=== PATIENT | female | born 1965 | race Caucasian/White ===

== ENCOUNTER 2021-04-27 20:25 | Inpatient (IN) | payer OTHER ==
[~2021-04-27] VITALS: Ht 170.1 cm; Wt 40.8 kg
[2021-04-27 20:32] VITALS: BP 99/67
[2021-04-27 21:02] LABS: HEMATOCRIT 36.7 % (37.0-47.0); MEAN CELL VOLUME 90.8 fl (81.0-99.0); MEAN CORPUSCULAR HGB 30.2 pg (27.0-31.0); MEAN CORPUSCULAR HGB CONC 33.2 g/dl (33.0-37.0); MEAN PLATELET VOLUME 8.8 fl (9.6-12.3); PLATELET COUNT AUTOMATED 394 10*3/uL (130-400); RED BLOOD COUNT 4.04 10*6/uL (4.10-5.10); RED CELL DISTRI WIDTH 12.9 % (0-14.5)
[2021-04-27 21:03] LABS: MANUAL DIFF REFLEX YES
[2021-04-27 21:13] LABS: ACT PARTIAL THROMBO TIME 31.8 SECONDS (20.0-32.1)
[2021-04-27 21:27] LABS: ALKALINE PHOSPHATASE 123 U/L (45-117); BUN 11 mg/dl (7-24); CHLORIDE 104 mmol/L (98-107); CREATININE 0.77 mg/dL (0.55-1.02); LIPASE 75 U/L (73-393); POTASSIUM 3.5 mmol/L (3.5-5.1); SGOT/AST 18 IU/L (3-35); SGPT/ALT 25 U/L (12-78); SODIUM 136 mmol/L (136-145); TOTAL PROTEIN 6.9 gm/dL (6.4-8.2)
[2021-04-27 21:39] LABS: TOTAL CELLS COUNTED 100 #CELLS
[2021-04-27 21:40] LABS: PLATELET SUFFICIENCY NORMAL (NORMAL)
[2021-04-27 21:41] LABS: ACANTHOCYTES FEW
[2021-04-27 22:32] LABS: BILIRUBIN Negative (Negative); BLOOD Trace-Lysed (Negative); CLARITY Clear (Clear); COLOR Dark Yellow (Yellow); GLUCOSE Negative (Negative); KETONE Trace (Negative); LEUKO ESTERASE Trace (Negative); NITRITE Negative (Negative); SPECIFIC GRAVITY >= 1.030 (1.001-1.030)
[2021-04-27 23:06] LABS: BACTERIA TRACE; EPITHELIAL CELLS 0-2; MUCOUS 2+
[2021-04-27 23:24] VITALS: BP 102/65
[2021-04-28] VITALS: BP 96/64
[2021-04-28 06:11] LABS: BUN 11 mg/dl (7-24); CHLORIDE 108 mmol/L (98-107); CREATININE 0.69 mg/dL (0.55-1.02); POTASSIUM 3.9 mmol/L (3.5-5.1); SODIUM 137 mmol/L (136-145)
[2021-04-28 06:20] LABS: FREE T4 1.36 ng/dl (0.76-1.46); THYROID STIM HORMONE (HS) 0.447 uIU/ml (0.358-4.75)
[2021-04-28 06:23] LABS: HEMATOCRIT 37.6 % (37.0-47.0); MEAN CELL VOLUME 92.6 fl (81.0-99.0); MEAN CORPUSCULAR HGB 30.5 pg (27.0-31.0); MEAN PLATELET VOLUME 9.4 fl (9.6-12.3); PLATELET COUNT AUTOMATED 441 10*3/uL (130-400); RED BLOOD COUNT 4.06 10*6/uL (4.10-5.10); WHITE BLOOD COUNT 14.8 10*3/uL (4.8-10.8)
[2021-04-28 06:38] LABS: MANUAL DIFF REFLEX YES
[2021-04-28 07:18] LABS: BURR CELLS FEW; POLYCHROMASIA SLIGHT; TARGET CELLS FEW; TOTAL CELLS COUNTED 100 #CELLS; TOXIC GRANULATION SLIGHT
[2021-04-28 07:19] LABS: PLATELET SUFFICIENCY HIGH (NORMAL)
[2021-04-28 07:44] LABS: VITAMIN D, 25-HYDROXY 15.2 ng/mL (30-100)
== END 2021-04-28 06:20 | disposition left against medical advice (07) | DRG 720 ==
LOC: ED 20:25 → EDHOLD 23:15 → 4E 23:28
PROVIDERS: Physician Assistant; Student in an Organized Health Care Education/Training Program; ADMIT Family Medicine; ATTEND Family Medicine
DX: A41.9 Sepsis, unspecified organism (principal); J18.9 Pneumonia, unspecified organism; E43 Unspecified severe protein-calorie malnutrition; J43.9 Emphysema, unspecified; I25.10 Atherosclerotic heart disease of native coronary artery without angina pectoris; R73.9 Hyperglycemia, unspecified; F17.210 Nicotine dependence, cigarettes, uncomplicated; Z90.710 Acquired absence of both cervix and uterus; Z68.1 Body mass index [BMI] 19.9 or less, adult

== ENCOUNTER 2021-05-04 16:16 | Emergency (ER) | payer OTHER ==
[~2021-05-04] VITALS: Ht 170.1 cm; Wt 40.8 kg
[2021-05-04 16:42] LABS: BASO # 0.1 10*3/uL (0.0-0.1); BASO % 0.5 % (0.0-1.0); EOS # 0.3 10*3/uL (0.0-0.4); EOS % 2.5 % (1.0-4.0); HEMATOCRIT 38.6 % (37.0-47.0); LYMPH # 3.5 10*3/uL (1.3-4.4); LYMPH % 30.8 % (27.0-41.0); MEAN CELL VOLUME 91.7 fl (81.0-99.0); MEAN CORPUSCULAR HGB 29.9 pg (27.0-31.0); MEAN CORPUSCULAR HGB CONC 32.6 g/dl (33.0-37.0); MEAN PLATELET VOLUME 8.1 fl (9.6-12.3); MONO # 0.9 10*3/uL (0.1-1.0); MONO % 7.5 % (3.0-9.0); NEUT # 6.5 10*3/uL (2.3-7.9); NEUT % 57.2 % (47.0-73.0); PLATELET COUNT AUTOMATED 600 10*3/uL (130-400); RED BLOOD COUNT 4.21 10*6/uL (4.10-5.10); RED CELL DISTRI WIDTH 13.2 % (0-14.5); WHITE BLOOD COUNT 11.3 10*3/uL (4.8-10.8)
[2021-05-04 17:00] LABS: ALKALINE PHOSPHATASE 119 U/L (45-117); BUN 19 mg/dl (7-24); CHLORIDE 104 mmol/L (98-107); CREATININE 0.77 mg/dL (0.55-1.02); POTASSIUM 4.2 mmol/L (3.5-5.1); SGOT/AST 11 IU/L (3-35); SGPT/ALT 22 U/L (12-78); SODIUM 138 mmol/L (136-145); TOTAL PROTEIN 7.1 gm/dL (6.4-8.2)
[2021-05-04 19:15] LABS: BILIRUBIN Negative (Negative); BLOOD Negative (Negative); CLARITY Clear (Clear); COLOR Yellow (Yellow); GLUCOSE Negative (Negative); KETONE Negative (Negative); LEUKO ESTERASE Trace (Negative); NITRITE Negative (Negative); UROBILINOGEN 0.2 E.U./dl (0.0-1.0)
[2021-05-04 19:26] LABS: BACTERIA TRACE; RBC 0-2 rbc/hpf (0-2); YEAST TRACE
[2021-05-04 19:27] LABS: URINE AMPHETAMINES > 1000 (1000ng/ml); URINE BARBITURATES < 200 (200ng/ml); URINE BENZODIAZEPINES > 200 (200ng/ml); URINE CANNABINOIDS (THC) > 50 (50ng/ml); URINE COCAINE > 300 (300ng/ml); URINE METHADONE < 300 (300ng/ml); URINE OPIATES < 300 (300ng/ml)
[2021-05-04 19:29] LABS: URINE PHENCYCLIDINE < 25 (25ng/ml)
== END 2021-05-04 20:02 | disposition left against medical advice (07) ==
LOC: ED 16:16
PROVIDERS: Family Medicine
DX: T50.991A Poisoning by other drugs, medicaments and biological substances, accidental (unintentional), initial encounter (principal); R53.83 Other fatigue; F17.200 Nicotine dependence, unspecified, uncomplicated; Z90.89 Acquired absence of other organs; Z90.710 Acquired absence of both cervix and uterus; Y92.89 Other specified places as the place of occurrence of the external cause

== ENCOUNTER 2022-02-20 19:02 | Emergency (ER) | payer OTHER ==
[~2022-02-20] VITALS: Ht 170.1 cm; Wt 50.3 kg
[2022-02-20 19:48] LABS: BASO # 0.1 10*3/uL (0.0-0.1); BASO % 0.3 % (0.0-1.0); EOS # 0.2 10*3/uL (0.0-0.4); HEMATOCRIT 40.5 % (37.0-47.0); LYMPH # 3.2 10*3/uL (1.3-4.4); LYMPH % 14.5 % (27.0-41.0); MEAN CELL VOLUME 91.2 fl (81.0-99.0); MEAN CORPUSCULAR HGB 30.2 pg (27.0-31.0); MEAN CORPUSCULAR HGB CONC 33.1 g/dl (33.0-37.0); MEAN PLATELET VOLUME 9.2 fl (9.6-12.3); MONO # 1.2 10*3/uL (0.1-1.0); MONO % 5.6 % (3.0-9.0); NEUT % 78.1 % (47.0-73.0); PLATELET COUNT AUTOMATED 304 10*3/uL (130-400); RED BLOOD COUNT 4.44 10*6/uL (4.10-5.10); RED CELL DISTRI WIDTH 13.6 % (0-14.5); WHITE BLOOD COUNT 21.8 10*3/uL (4.8-10.8)
[2022-02-20 20:06] LABS: ALKALINE PHOSPHATASE 102 U/L (46-116); BUN 13 mg/dl (9-23); CHLORIDE 103 mmol/L (98-107); POTASSIUM 3.7 mmol/L (3.4-5.1); SGPT/ALT 16 U/L (10-49); TOTAL PROTEIN 6.9 gm/dL (6.0-8.0)
[2022-02-20] MEDS ORDERED: MEDROL DOSEPAK4 MG PO (22:01)
[2022-02-20] MEDS ORDERED: VIBRAMYCIN100 MG PO (22:01)
[2022-02-20] MEDS ORDERED: ZITHROMAX250 MG PO (22:01)
== END 2022-02-20 22:10 | disposition home or self-care (01) ==
LOC: ED 19:02
PROVIDERS: Nurse Practitioner Family
DX: J43.9 Emphysema, unspecified (principal); J45.909 Unspecified asthma, uncomplicated; Z90.710 Acquired absence of both cervix and uterus; Z90.89 Acquired absence of other organs; F17.200 Nicotine dependence, unspecified, uncomplicated

== ENCOUNTER → 2022-08-29 | Outpatient (CLI) | payer OTHER ==
[~2022-08-29] MED LIST: MEDROL DOSEPAK4 MG PO; VIBRAMYCIN100 MG PO; ZITHROMAX250 MG PO
[2022-08-29 14:31] LABS: BASO # 0.1 10*3/uL (0.0-0.1); BASO % 0.6 % (0.0-1.0); EOS # 0.3 10*3/uL (0.0-0.4); EOS % 2.7 % (1.0-4.0); HEMATOCRIT 41.6 % (37.0-47.0); LYMPH # 4.3 10*3/uL (1.3-4.4); LYMPH % 38.2 % (27.0-41.0); MEAN CELL VOLUME 97.4 fl (81.0-99.0); MEAN CORPUSCULAR HGB 32.1 pg (27.0-31.0); MEAN CORPUSCULAR HGB CONC 32.9 g/dl (33.0-37.0); MEAN PLATELET VOLUME 8.9 fl (9.6-12.3); MONO % 8.8 % (3.0-9.0); NEUT # 5.5 10*3/uL (2.3-7.9); NEUT % 49.3 % (47.0-73.0); PLATELET COUNT AUTOMATED 352 10*3/uL (130-400); RED BLOOD COUNT 4.27 10*6/uL (4.10-5.10); RED CELL DISTRI WIDTH 14.4 % (0-14.5); WHITE BLOOD COUNT 11.2 10*3/uL (4.8-10.8)
[2022-08-29 15:01] LABS: VITAMIN D, 25-HYDROXY 16.1 ng/mL (30-100)
[2022-08-29 15:02] LABS: ALKALINE PHOSPHATASE 88 U/L (46-116); BUN 8 mg/dl (9-23); CHLORIDE 108 mmol/L (98-107); CHOLESTEROL 157 mg/dL (<200); LDL CHOLESTEROL 87 mg/dL (9-159); POTASSIUM 4.4 mmol/L (3.4-5.1); SGPT/ALT 14 U/L (10-49); TOTAL PROTEIN 6.4 gm/dL (6.0-8.0); TRIGLYCERIDES 58 mg/dl (<150)
== END | disposition home or self-care (01) ==
LOC: LAB 13:54
PROVIDERS: ATTEND Family Medicine
DX: Z00.00 Encounter for general adult medical examination without abnormal findings (principal); Z12.11 Encounter for screening for malignant neoplasm of colon; Z13.6 Encounter for screening for cardiovascular disorders; R73.01 Impaired fasting glucose; E55.9 Vitamin D deficiency, unspecified

== ENCOUNTER 2024-08-05 04:36 | Inpatient (IN) | payer OTHER ==
[~2024-08-05] VITALS: Ht 170.2 cm; Wt 45.8 kg
[2024-08-05 04:38] VITALS: BP 116/59
[2024-08-05 05:49] LABS: ALKALINE PHOSPHATASE 103 U/L (46-116); BUN 9 mg/dl (9-23); CHLORIDE 100 mmol/L (98-107); LIPASE 35 U/L (12-53); SGPT/ALT 8 U/L (5-49); TOTAL PROTEIN 6.8 gm/dL (6.0-8.0)
[2024-08-05 05:57] LABS: HEMATOCRIT 37.6 % (37.0-47.0); MEAN CELL VOLUME 94.9 fl (81.0-99.0); MEAN CORPUSCULAR HGB 30.3 pg (27.0-31.0); MEAN CORPUSCULAR HGB CONC 31.9 g/dl (33.0-37.0); MEAN PLATELET VOLUME 8.8 fl (9.6-12.3); PLATELET COUNT AUTOMATED 488 10*3/uL (130-400); RED BLOOD COUNT 3.96 10*6/uL (4.10-5.10); RED CELL DISTRI WIDTH 13.2 % (0-14.5); WHITE BLOOD COUNT 27.1 10*3/uL (4.8-10.8)
[2024-08-05 06:13] LABS: MANUAL DIFF REFLEX YES
[2024-08-05 06:41] LABS: PLATELET SUFFICIENCY HIGH (NORMAL); TOTAL CELLS COUNTED 100 #CELLS
[2024-08-05 06:43] LABS: BURR CELLS FEW
[2024-08-05] MEDS ORDERED: IOHEXOL 300 MG/ML 100 ML VIAL IV ONE (08:40)
[2024-08-05 08:52] LABS: BILIRUBIN Negative (Negative); BLOOD Negative (Negative); CLARITY Clear (Clear); COLOR Yellow (Yellow); GLUCOSE Negative (Negative); KETONE Negative (Negative); LEUKO ESTERASE Trace (Negative); NITRITE Negative (Negative); SPECIFIC GRAVITY <= 1.005 (1.001-1.030)
[2024-08-05] MEDS ORDERED: IOHEXOL 300 MG/ML 100 ML VIAL ONE (08:56)
[2024-08-05 09:03] LABS: BACTERIA 1+
[2024-08-05] MEDS ORDERED: Piperacillin Sodium/Tazobact 100 ML IV ONE (09:25)
[2024-08-05] MEDS ORDERED: SODIUM CHLORIDE 0.9% 1,000 ML IV SCH (09:30)
[2024-08-05] MEDS ORDERED: Ondansetron Hydrochloride 4 MG/2 ML VIAL IV ONE (09:40)
[2024-08-05] MEDS ORDERED: MORPHINE Sulfate 2 MG/ML SYR IV ONE ×2 (09:40→13:50)
[2024-08-05] MEDS ORDERED: VALIUM10 MG PO (09:43)
[2024-08-05] MEDS ORDERED: ADDERALL 10 MG10 MG PO (09:43)
[2024-08-05] MEDS ORDERED: NEURONTIN300 MG PO (09:44)
[2024-08-05] MEDS ORDERED: VENT7GM INH (09:44)
[2024-08-05 10:34] VITALS: BP 100/60
[2024-08-05 10:45] VITALS: BP 100/58
[2024-08-05] MEDS ORDERED: BISACODYL 10 MG SUPP R PRN (11:40)
[2024-08-05] MEDS ORDERED: ACETAMINOPHEN 650 MG SUPP R PRN (11:40)
[2024-08-05] MEDS ORDERED: BISACODYL 5 MG TAB PO PRN (11:40)
[2024-08-05] MEDS ORDERED: Ondansetron Hydrochloride 4 MG/2 ML VIAL IV PRN (11:40)
[2024-08-05] MEDS ORDERED: ACETAMINOPHEN 325 MG TAB PO PRN (11:40)
[2024-08-05] MEDS ORDERED: cefTRIAXone Sodium 1 GM in SYRINGE INFUSION 10 ML IV SCH ×3 (12:15→16:30)
[2024-08-05] MEDS ORDERED: SODIUM CHLORIDE 0.9% 500 ML IV SCH (12:15)
[2024-08-05] MEDS ORDERED: Albuterol Sulf/Ipratropium 3 ML VIAL NEB SCH (13:20)
[2024-08-05] MEDS ORDERED: Piperacillin Sodium/Tazobact 4.5 GM in SODIUM CHLORIDE 0.9% 100 ML IV SCH (14:00)
[2024-08-05] MEDS ORDERED: AZITHROMYCIN 250 ML IV SCH ×2 (14:00→18:00)
[2024-08-05] MEDS ORDERED: Water, Sterile 10 ML VIAL ONE (15:50)
[2024-08-05 16:00] VITALS: BP 90/55
[2024-08-05] MEDS ORDERED: Acetaminophen/Hydrocodone 5 MG/325 MG TABLET PO PRN (16:05)
[2024-08-05] MEDS ORDERED: methylPREDNISolone sod succ 40 MG VIAL IV SCH (18:00)
[2024-08-05 20:00] VITALS: BP 100/78
[2024-08-05] MEDS ORDERED: GUAIFENESIN 600 MG TAB ER PO SCH (22:00)
[2024-08-06] VITALS: BP 90/54
[2024-08-06] MEDS ORDERED: Pantoprazole Sodium 40 MG TAB PO SCH (06:00)
[2024-08-06 06:30] LABS: BASO % 0.2 % (0.0-1.0); HEMATOCRIT 35.6 % (37.0-47.0); MEAN CORPUSCULAR HGB 29.9 pg (27.0-31.0); MEAN CORPUSCULAR HGB CONC 31.2 g/dl (33.0-37.0); MONO # 0.7 10*3/uL (0.1-1.0); NEUT # 15.5 10*3/uL (2.3-7.9); NEUT % 86.4 % (47.0-73.0); PLATELET COUNT AUTOMATED 463 10*3/uL (130-400); RED BLOOD COUNT 3.71 10*6/uL (4.10-5.10); RED CELL DISTRI WIDTH 13.4 % (0-14.5)
[2024-08-06 06:31] LABS: ALKALINE PHOSPHATASE 111 U/L (46-116); BUN 13 mg/dl (9-23); CHLORIDE 107 mmol/L (98-107); CHOLESTEROL 129 mg/dL (<200); FREE T4 0.92 ng/dl (0.89-1.76); LDL CHOLESTEROL 82 mg/dL (9-159); POTASSIUM 4.6 mmol/L (3.4-5.1); SGPT/ALT 15 U/L (5-49); TRIGLYCERIDES 52 mg/dl (<150)
[2024-08-06 06:35] LABS: ACT PARTIAL THROMBO TIME 28.1 SECONDS (20.0-32.1)
[2024-08-06 07:07] LABS: VITAMIN D, 25-HYDROXY 10.7 ng/mL (30-100)
[2024-08-06 08:00] VITALS: BP 124/73
[2024-08-06] MEDS ORDERED: Water, Sterile 10 ML VIAL ONE (09:18)
[2024-08-06] MEDS ORDERED: Enoxaparin Sodium 40 MG/0.4 ML SYR SC SCH (10:00)
== END 2024-08-06 10:51 | disposition left against medical advice (07) | DRG 871 ==
LOC: ED 04:36 → 4E 09:41 → EDHOLD 09:41 → 4E 10:30
PROVIDERS: Emergency Medicine; ADMIT Internal Medicine; ATTEND Internal Medicine
DX: A41.9 Sepsis, unspecified organism (principal); J18.9 Pneumonia, unspecified organism; E44.0 Moderate protein-calorie malnutrition; J44.1 Chronic obstructive pulmonary disease with (acute) exacerbation; Z68.1 Body mass index [BMI] 19.9 or less, adult; J45.909 Unspecified asthma, uncomplicated; K80.20 Calculus of gallbladder without cholecystitis without obstruction; F90.9 Attention-deficit hyperactivity disorder, unspecified type; F17.210 Nicotine dependence, cigarettes, uncomplicated; J43.9 Emphysema, unspecified; D75.839 Thrombocytosis, unspecified; R73.9 Hyperglycemia, unspecified; F12.10 Cannabis abuse, uncomplicated; G62.9 Polyneuropathy, unspecified; Z71.6 Tobacco abuse counseling; Z53.29 Procedure and treatment not carried out because of patient's decision for other reasons

== ENCOUNTER 2024-08-07 03:58 | Inpatient (IN) | payer OTHER ==
[~2024-08-07] VITALS: Ht 3556 cm; Wt 48.6 kg
[2024-08-07] VITALS (7 sets, daily range): BP systolic 85–147; BP diastolic 51–89
[~2024-08-07 03:58] MED LIST changes: +ADDERALL 10 MG10 MG PO; +NEURONTIN300 MG PO; +VALIUM10 MG PO; +VENT7GM INH
[2024-08-07] MEDS ORDERED: Ondansetron Hydrochloride 4 MG/2 ML VIAL IV ONE (04:30)
[2024-08-07] MEDS ORDERED: Ketorolac Tromethamine 30 MG/ML VIAL IV ONE (04:30)
[2024-08-07] MEDS ORDERED: SODIUM CHLORIDE 0.9% 500 ML IV ONE (04:30)
[2024-08-07] MEDS ORDERED: Codeine Phosphate/Guaifenesi 10 ML UDC PO ONE (04:30)
[2024-08-07 04:48] LABS: BASO % 0.2 % (0.0-1.0); EOS % 0.1 % (1.0-4.0); HEMATOCRIT 36.5 % (37.0-47.0); MEAN CELL VOLUME 96.1 fl (81.0-99.0); MEAN CORPUSCULAR HGB 30.3 pg (27.0-31.0); MEAN CORPUSCULAR HGB CONC 31.5 g/dl (33.0-37.0); MEAN PLATELET VOLUME 8.6 fl (9.6-12.3); MONO # 1.2 10*3/uL (0.1-1.0); MONO % 4.6 % (3.0-9.0); NEUT # 19.7 10*3/uL (2.3-7.9); NEUT % 79.8 % (47.0-73.0); PLATELET COUNT AUTOMATED 514 10*3/uL (130-400); RED CELL DISTRI WIDTH 13.3 % (0-14.5); WHITE BLOOD COUNT 24.7 10*3/uL (4.8-10.8)
[2024-08-07 05:09] LABS: ALKALINE PHOSPHATASE 121 U/L (46-116); BUN 11 mg/dl (9-23); CHLORIDE 104 mmol/L (98-107); SGPT/ALT 19 U/L (5-49)
[2024-08-07] MEDS ORDERED: SODIUM CHLORIDE 0.9% 1,000 ML IV ONE ×2 (05:20→05:45)
[2024-08-07] MEDS ORDERED: cefTRIAXone Sodium 1 GM/10 ML SYR IV ONE (05:20)
[2024-08-07] MEDS ORDERED: Potassium Bicarbonate/Potass 25 MEQ TAB PO ONE ×2 (05:25→10:00)
[2024-08-07] MEDS ORDERED: Acetaminophen/Hydrocodone 5 MG/325 MG TABLET PO PRN (05:50)
[2024-08-07] MEDS ORDERED: BISACODYL 10 MG SUPP R PRN (05:50)
[2024-08-07] MEDS ORDERED: ACETAMINOPHEN 650 MG SUPP R PRN (05:50)
[2024-08-07] MEDS ORDERED: ACETAMINOPHEN 325 MG TAB PO PRN (05:50)
[2024-08-07] MEDS ORDERED: BISACODYL 5 MG TAB PO PRN (05:50)
[2024-08-07] MEDS ORDERED: Magnesium Hydroxide 30 ML UDC PO PRN (05:50)
[2024-08-07] MEDS ORDERED: Ondansetron Hydrochloride 4 MG/2 ML VIAL IV PRN (05:50)
[2024-08-07] MEDS ORDERED: Albuterol Sulf/Ipratropium 3 ML VIAL NEB SCH (05:55)
[2024-08-07] MEDS ORDERED: GABAPENTIN 300 MG CAP PO SCH (08:00)
[2024-08-07] MEDS ORDERED: Amphetamine Salt Combination 5 MG TAB PO SCH (10:00)
[2024-08-07] MEDS ORDERED: AZITHROMYCIN 250 ML IV SCH (10:00)
[2024-08-07] MEDS ORDERED: GUAIFENESIN 600 MG TAB ER PO SCH (10:00)
[2024-08-07] MEDS ORDERED: Enoxaparin Sodium 40 MG/0.4 ML SYR SC SCH (10:00)
[2024-08-07] MEDS ORDERED: methylPREDNISolone sod succ 40 MG VIAL IV SCH (10:00)
[2024-08-07] MEDS ORDERED: Albuterol Sulf/Ipratropium 3 ML VIAL NEB PRN (15:30)
[2024-08-08] VITALS: BP 99/66
[2024-08-08 06:49] LABS: BASO % 0.1 % (0.0-1.0); HEMATOCRIT 32.8 % (37.0-47.0); MEAN CELL VOLUME 95.6 fl (81.0-99.0); MEAN CORPUSCULAR HGB 30.3 pg (27.0-31.0); MEAN CORPUSCULAR HGB CONC 31.7 g/dl (33.0-37.0); MEAN PLATELET VOLUME 8.5 fl (9.6-12.3); MONO % 5.2 % (3.0-9.0); NEUT # 14.6 10*3/uL (2.3-7.9); NEUT % 80.4 % (47.0-73.0); PLATELET COUNT AUTOMATED 486 10*3/uL (130-400); RED BLOOD COUNT 3.43 10*6/uL (4.10-5.10); RED CELL DISTRI WIDTH 13.6 % (0-14.5); WHITE BLOOD COUNT 18.1 10*3/uL (4.8-10.8)
[2024-08-08 07:36] LABS: ALKALINE PHOSPHATASE 107 U/L (46-116); BUN 13 mg/dl (9-23); CHLORIDE 106 mmol/L (98-107); SGPT/ALT 21 U/L (5-49); TOTAL PROTEIN 5.7 gm/dL (6.0-8.0)
[2024-08-08 07:58] LABS: POTASSIUM 4.6 mmol/L (3.4-5.1)
[2024-08-08 08:00] VITALS: BP 100/63
[2024-08-08] MEDS ORDERED: cefTRIAXone Sodium 1 GM in SYRINGE INFUSION 10 ML IV SCH (10:00)
[2024-08-08] MEDS ORDERED: DOCUSATE SODIUM 100 MG CAP PO ONE (10:35)
[2024-08-08] MEDS ORDERED: Pantoprazole Sodium 40 MG TAB PO ONE (10:35)
[2024-08-08] MEDS ORDERED: diazePAM 5 MG TAB PO SCH (10:40)
[2024-08-08 12:00] VITALS: BP 112/64
[2024-08-08] MEDS ORDERED: MAGNESIUM CITRATE 296 ML BOT PO ONE (13:40)
[2024-08-08] MEDS ORDERED: PREDNISONE50 MG PO (15:51)
[2024-08-08] MEDS ORDERED: ZITHROMAX250 MG PO (15:51)
[2024-08-08] MEDS ORDERED: COLACE100 MG PO (15:51)
== END 2024-08-08 17:00 | disposition home or self-care (01) | DRG 871 ==
LOC: ED 03:58 → 4E 05:31 → EDHOLD 05:31 → 4E 09:16
PROVIDERS: Emergency Medicine; ADMIT Family Medicine; ATTEND Family Medicine
DX: A41.9 Sepsis, unspecified organism (principal); J15.69 Pneumonia due to other Gram-negative bacteria; J44.1 Chronic obstructive pulmonary disease with (acute) exacerbation; J44.0 Chronic obstructive pulmonary disease with (acute) lower respiratory infection; E87.20 Acidosis, unspecified; F90.9 Attention-deficit hyperactivity disorder, unspecified type; R65.20 Severe sepsis without septic shock; K80.20 Calculus of gallbladder without cholecystitis without obstruction; F17.210 Nicotine dependence, cigarettes, uncomplicated; D75.839 Thrombocytosis, unspecified; G62.9 Polyneuropathy, unspecified; E87.6 Hypokalemia; D64.9 Anemia, unspecified; K59.00 Constipation, unspecified; Z79.899 Other long term (current) drug therapy; Z79.01 Long term (current) use of anticoagulants; Z79.2 Long term (current) use of antibiotics; Z90.710 Acquired absence of both cervix and uterus; Z82.49 Family history of ischemic heart disease and other diseases of the circulatory system

== ENCOUNTER 2024-08-26 18:16 | Emergency (ER) | payer OTHER ==
[~2024-08-26 18:16] MED LIST changes: +COLACE100 MG PO; +PREDNISONE50 MG PO
== END 2024-08-26 19:33 | disposition left against medical advice (07) ==
LOC: ED 18:16
DX: K59.00 Constipation, unspecified (principal); Z53.21 Procedure and treatment not carried out due to patient leaving prior to being seen by health care provider

== ENCOUNTER 2024-08-28 15:06 | Inpatient (IN) | payer OTHER ==
[~2024-08-28] VITALS: Ht 170.2 cm; Wt 51.3 kg
[2024-08-28 15:09] VITALS: BP 115/79
[2024-08-28] MEDS ORDERED: SODIUM CHLORIDE 0.9% 1,000 ML IV ONE ×2 (15:15→16:45)
[2024-08-28] MEDS ORDERED: Ondansetron Hydrochloride 4 MG/2 ML VIAL IV ONE (15:15)
[2024-08-28 15:24] LABS: MEAN CELL VOLUME 94.3 fl (81.0-99.0); MEAN CORPUSCULAR HGB 30.2 pg (27.0-31.0); MEAN PLATELET VOLUME 8.5 fl (9.6-12.3); NUCLEATED RED BLOOD CELL 0.0 % (0.0-0.0); NUCLEATED RED BLOOD CELL 0.0 10*3/uL (0.0-0.0); PLATELET COUNT AUTOMATED 374 10*3/uL (130-400); RED CELL DISTRI WIDTH 14.6 % (0-14.5)
[2024-08-28 15:26] LABS: MANUAL DIFF REFLEX YES
[2024-08-28 15:44] LABS: BUN < 5 mg/dl (9-23)
[2024-08-28 15:46] LABS: BILIRUBIN 1+ (Negative); BLOOD Negative (Negative); CLARITY Cloudy (Clear); COLOR Dark Yellow (Yellow); KETONE Trace (Negative); LEUKO ESTERASE Negative (Negative); NITRITE Negative (Negative); PH 5.5 (4.5-8.0); SPECIFIC GRAVITY >= 1.030 (1.001-1.030); UROBILINOGEN 1.0 E.U./dl (0.0-1.0)
[2024-08-28 15:51] LABS: PLATELET SUFFICIENCY NORMAL (NORMAL)
[2024-08-28 16:00] LABS: BACTERIA TRACE; MUCOUS 2+; RBC 0-2 rbc/hpf (0-2)
[2024-08-28] MEDS ORDERED: ACETAMINOPHEN 325 MG TAB PO PRN (17:50)
[2024-08-28 19:49] VITALS: BP 108/63
[2024-08-28] MEDS ORDERED: diazePAM 5 MG TAB PO PRN (20:55)
[2024-08-29] VITALS (7 sets, daily range): BP systolic 92–105; BP diastolic 46–66
[2024-08-29] MEDS ORDERED: GABAPENTIN 300 MG CAP PO SCH
[2024-08-29 05:13] LABS: BUN < 5 mg/dl (9-23); SGPT/ALT < 7 U/L (5-49)
[2024-08-29 05:56] LABS: BASO # 0.1 10*3/uL (0.0-0.1); BASO % 0.3 % (0.0-1.0); EOS # 0.5 10*3/uL (0.0-0.4); EOS % 2.3 % (1.0-4.0); MEAN CELL VOLUME 95.3 fl (81.0-99.0); MEAN CORPUSCULAR HGB 30.6 pg (27.0-31.0); MEAN PLATELET VOLUME 9.3 fl (9.6-12.3); MONO # 1.2 10*3/uL (0.1-1.0); MONO % 5.9 % (3.0-9.0); NEUT # 15.1 10*3/uL (2.3-7.9); NEUT % 72.0 % (47.0-73.0); NUCLEATED RED BLOOD CELL 0.0 % (0.0-0.0); NUCLEATED RED BLOOD CELL 0.0 10*3/uL (0.0-0.0); PLATELET COUNT AUTOMATED 364 10*3/uL (130-400); RED CELL DISTRI WIDTH 14.9 % (0-14.5)
[2024-08-29] MEDS ORDERED: POTASSIUM CHLORIDE 20 MEQ TAB PO ONE (09:05)
[2024-08-30] VITALS: BP 99/52
[2024-08-30] MEDS ORDERED: ACETAMINOPHEN 60 ML IV ONE (00:15)
[2024-08-30] MEDS ORDERED: SODIUM CHLORIDE 0.9% 1,000 ML IV ONE (01:00)
[2024-08-30 05:04] VITALS: BP 94/54
[2024-08-30 06:17] LABS: BASO # 0.1 10*3/uL (0.0-0.1); BASO % 0.5 % (0.0-1.0); EOS # 0.4 10*3/uL (0.0-0.4); EOS % 3.4 % (1.0-4.0); MEAN CELL VOLUME 97.1 fl (81.0-99.0); MEAN CORPUSCULAR HGB 30.2 pg (27.0-31.0); MEAN PLATELET VOLUME 9.4 fl (9.6-12.3); MONO # 1.3 10*3/uL (0.1-1.0); MONO % 11.3 % (3.0-9.0); NEUT # 6.2 10*3/uL (2.3-7.9); NEUT % 55.1 % (47.0-73.0); NUCLEATED RED BLOOD CELL 0.0 % (0.0-0.0); NUCLEATED RED BLOOD CELL 0.0 10*3/uL (0.0-0.0); PLATELET COUNT AUTOMATED 360 10*3/uL (130-400); RED CELL DISTRI WIDTH 14.9 % (0-14.5)
[2024-08-30 06:28] LABS: BUN 6 mg/dl (9-23)
[2024-08-30 08:00] VITALS: BP 100/58
[2024-08-30 12:00] VITALS: BP 125/66
[2024-08-30] MEDS ORDERED: Dicyclomine Hydrochloride 20 MG TAB PO SCH (12:00)
[2024-08-30] MEDS ORDERED: BISACODYL 5 MG TAB PO SCH (13:40)
[2024-08-30] MEDS ORDERED: Polyethylene Glycol 3350 17 GM PACKET PO SCH (13:45)
[2024-08-30 16:00] VITALS: BP 121/70
[2024-08-30 20:00] VITALS: BP 122/77
[2024-08-31] VITALS: BP 112/64
[2024-08-31 08:00] VITALS: BP 162/102
[2024-08-31 10:58] LABS: BASO # 0.1 10*3/uL (0.0-0.1); BASO % 0.7 % (0.0-1.0); EOS # 0.3 10*3/uL (0.0-0.4); EOS % 2.5 % (1.0-4.0); MEAN CELL VOLUME 96.8 fl (81.0-99.0); MEAN CORPUSCULAR HGB 30.5 pg (27.0-31.0); MEAN PLATELET VOLUME 8.7 fl (9.6-12.3); MONO # 1.2 10*3/uL (0.1-1.0); MONO % 9.9 % (3.0-9.0); NEUT # 7.2 10*3/uL (2.3-7.9); NEUT % 62.4 % (47.0-73.0); NUCLEATED RED BLOOD CELL 0.0 % (0.0-0.0); NUCLEATED RED BLOOD CELL 0.0 10*3/uL (0.0-0.0); PLATELET COUNT AUTOMATED 415 10*3/uL (130-400); RED CELL DISTRI WIDTH 14.9 % (0-14.5)
[2024-08-31 11:30] LABS: BUN 11 mg/dl (9-23)
[2024-08-31] MEDS ORDERED: MIRALAX17 GM PO (12:01)
[2024-08-31] MEDS ORDERED: AMOX-CLAV 875-1 EACH PO (12:01)
[2024-08-31] MEDS ORDERED: DICYCLOMINE HYD20 MG PO (12:01)
== END 2024-08-31 14:43 | disposition home or self-care (01) | DRG 871 ==
LOC: ED 15:06 → 4E 16:49 → EDHOLD 16:49 → 4E 16:49
PROVIDERS: Emergency Medicine; Family Medicine; ADMIT Internal Medicine; ATTEND Internal Medicine
DX: A41.9 Sepsis, unspecified organism (principal); E43 Unspecified severe protein-calorie malnutrition; Z68.1 Body mass index [BMI] 19.9 or less, adult; K52.9 Noninfective gastroenteritis and colitis, unspecified; R65.20 Severe sepsis without septic shock; F12.10 Cannabis abuse, uncomplicated; F17.200 Nicotine dependence, unspecified, uncomplicated; E83.42 Hypomagnesemia; E87.6 Hypokalemia; E87.8 Other disorders of electrolyte and fluid balance, not elsewhere classified; R73.9 Hyperglycemia, unspecified; J44.89 Other specified chronic obstructive pulmonary disease; Z90.89 Acquired absence of other organs; Z90.710 Acquired absence of both cervix and uterus; Z78.9 Other specified health status; Z98.51 Tubal ligation status; Z82.49 Family history of ischemic heart disease and other diseases of the circulatory system; Z79.899 Other long term (current) drug therapy

== ENCOUNTER 2024-11-06 20:37 | Emergency (ER) | payer OTHER ==
[~2024-11-06] VITALS: Ht 170.1 cm; Wt 51.3 kg
[~2024-11-06 20:37] MED LIST changes: +AMOX-CLAV 875-1 EACH PO; +DICYCLOMINE HYD20 MG PO; +MIRALAX17 GM PO
[2024-11-06] MEDS ORDERED: Acetaminophen/Hydrocodone 5 MG/325 MG TABLET PO ONE (21:25)
[2024-11-06] MEDS ORDERED: DERMABOND 1 EA APPL T ONE (21:49)
== END 2024-11-06 21:56 | disposition home or self-care (01) ==
LOC: ED 20:37
DX: S61.211A Laceration without foreign body of left index finger without damage to nail, initial encounter (principal); F41.9 Anxiety disorder, unspecified; Z79.899 Other long term (current) drug therapy; F17.200 Nicotine dependence, unspecified, uncomplicated; F12.90 Cannabis use, unspecified, uncomplicated; Z90.710 Acquired absence of both cervix and uterus; Z98.51 Tubal ligation status; Z90.89 Acquired absence of other organs; W26.8XXA Contact with other sharp object(s), not elsewhere classified, initial encounter; Y93.89 Activity, other specified; Y92.89 Other specified places as the place of occurrence of the external cause; Y99.8 Other external cause status

== ENCOUNTER 2024-11-15 21:40 | Inpatient (IN) | payer OTHER ==
[~2024-11-15] VITALS: Ht 170.2 cm; Wt 44.7 kg
[2024-11-15 21:47] VITALS: BP 114/69
[2024-11-15] MEDS ORDERED: MAGNESIUM SULFATE 50 ML IV ONE (22:00)
[2024-11-15] MEDS ORDERED: Albuterol Sulf/Ipratropium 3 ML VIAL NEB ONE (22:00)
[2024-11-15 22:38] LABS: BASO # 0.1 10*3/uL (0.0-0.1); BASO % 0.3 % (0.0-1.0); EOS # 0.2 10*3/uL (0.0-0.4); EOS % 0.9 % (1.0-4.0); MEAN CELL VOLUME 93.9 fl (81.0-99.0); MEAN CORPUSCULAR HGB 30.1 pg (27.0-31.0); MEAN PLATELET VOLUME 8.8 fl (9.6-12.3); MONO # 1.2 10*3/uL (0.1-1.0); MONO % 7.3 % (3.0-9.0); NEUT # 11.2 10*3/uL (2.3-7.9); NEUT % 66.8 % (47.0-73.0); NUCLEATED RED BLOOD CELL 0.0 % (0.0-0.0); NUCLEATED RED BLOOD CELL 0.0 10*3/uL (0.0-0.0); PLATELET COUNT AUTOMATED 325 10*3/uL (130-400); RED CELL DISTRI WIDTH 13.8 % (0-14.5)
[2024-11-15 22:59] LABS: BUN 11 mg/dl (9-23); SGPT/ALT 13 U/L (5-49)
[2024-11-15] MEDS ORDERED: AZITHROMYCIN 250 ML IV ONE (23:00)
[2024-11-15] MEDS ORDERED: BISACODYL 10 MG SUPP R PRN (23:45)
[2024-11-15] MEDS ORDERED: BISACODYL 5 MG TAB PO PRN (23:45)
[2024-11-15] MEDS ORDERED: ACETAMINOPHEN 650 MG SUPP R PRN (23:45)
[2024-11-15] MEDS ORDERED: Acetaminophen/Hydrocodone 5 MG/325 MG TABLET PO PRN (23:45)
[2024-11-15] MEDS ORDERED: ACETAMINOPHEN 325 MG TAB PO PRN (23:45)
[2024-11-15] MEDS ORDERED: Ondansetron Hydrochloride 4 MG/2 ML VIAL IV PRN (23:45)
[2024-11-16 01:22] VITALS: BP 118/70
[2024-11-16 01:25] VITALS: BP 104/60
[2024-11-16] MEDS ORDERED: Albuterol Sulf/Ipratropium 3 ML VIAL NEB SCH (02:15)
[2024-11-16] MEDS ORDERED: GABAPENTIN 300 MG CAP PO SCH (04:00)
[2024-11-16 05:56] LABS: BUN 10 mg/dl (9-23); FREE T4 1.33 ng/dl (0.89-1.76); LDL CHOLESTEROL 104 mg/dL (9-159); SGPT/ALT 12 U/L (5-49)
[2024-11-16 06:17] LABS: BASO # 0.0 10*3/uL (0.0-0.1); BASO % 0.3 % (0.0-1.0); EOS # 0.0 10*3/uL (0.0-0.4); EOS % 0.0 % (1.0-4.0); MEAN CELL VOLUME 93.6 fl (81.0-99.0); MEAN CORPUSCULAR HGB 30.2 pg (27.0-31.0); MEAN PLATELET VOLUME 9.3 fl (9.6-12.3); MONO # 0.1 10*3/uL (0.1-1.0); MONO % 0.6 % (3.0-9.0); NEUT # 10.3 10*3/uL (2.3-7.9); NEUT % 88.7 % (47.0-73.0); NUCLEATED RED BLOOD CELL 0.0 % (0.0-0.0); NUCLEATED RED BLOOD CELL 0.0 10*3/uL (0.0-0.0); PLATELET COUNT AUTOMATED 346 10*3/uL (130-400); RED CELL DISTRI WIDTH 13.8 % (0-14.5)
[2024-11-16 07:07] LABS: ACT PARTIAL THROMBO TIME 30.0 SECONDS (20.0-32.1)
[2024-11-16 08:00] VITALS: BP 100/53
[2024-11-16] MEDS ORDERED: diazePAM 5 MG TAB PO SCH (10:00)
[2024-11-16] MEDS ORDERED: GUAIFENESIN 600 MG TAB ER PO SCH (10:00)
[2024-11-16] MEDS ORDERED: AZITHROMYCIN 250 ML IV SCH (10:00)
[2024-11-16 12:00] VITALS: BP 105/62
[2024-11-16 16:00] VITALS: BP 117/55
[2024-11-16 20:00] VITALS: BP 128/61
[2024-11-17] VITALS: BP 118/74
[2024-11-17 05:19] LABS: BUN 19 mg/dl (9-23)
[2024-11-17 06:26] LABS: MEAN CELL VOLUME 94.2 fl (81.0-99.0); MEAN CORPUSCULAR HGB 29.9 pg (27.0-31.0); MEAN PLATELET VOLUME 9.6 fl (9.6-12.3); NUCLEATED RED BLOOD CELL 0.0 % (0.0-0.0); NUCLEATED RED BLOOD CELL 0.0 10*3/uL (0.0-0.0); PLATELET COUNT AUTOMATED 372 10*3/uL (130-400); RED CELL DISTRI WIDTH 13.6 % (0-14.5)
[2024-11-17 06:28] LABS: MANUAL DIFF REFLEX YES
[2024-11-17 07:10] LABS: PLATELET SUFFICIENCY NORMAL (NORMAL)
[2024-11-17 08:00] VITALS: BP 112/63
[2024-11-17] MEDS ORDERED: diazePAM 5 MG TAB PO SCH (10:00)
[2024-11-17] MEDS ORDERED: PREDNISONE10 MG PO (11:21)
[2024-11-17] MEDS ORDERED: LEVOFLOXACIN750 M2 PO (11:21)
[2024-11-17] MEDS ORDERED: MUCUS RELIEF E600 MG PO (11:21)
[2024-11-17] MEDS ORDERED: CYCLOBENZAPRINE5 M3 PO (11:22)
[2024-11-17 12:00] VITALS: BP 108/64
== END 2024-11-17 13:00 | disposition home or self-care (01) | DRG 206 ==
LOC: ED 21:40 → EDHOLD 23:04 → 4E 23:04 → EDHOLD 23:48 → 4E 11-16 01:17
PROVIDERS: Nurse Practitioner; Student in an Organized Health Care Education/Training Program; ADMIT Internal Medicine; ATTEND Internal Medicine
DX: J98.4 Other disorders of lung (principal); J44.1 Chronic obstructive pulmonary disease with (acute) exacerbation; F90.9 Attention-deficit hyperactivity disorder, unspecified type; G62.9 Polyneuropathy, unspecified; J45.909 Unspecified asthma, uncomplicated; F12.10 Cannabis abuse, uncomplicated; D72.829 Elevated white blood cell count, unspecified; R73.9 Hyperglycemia, unspecified; Z98.51 Tubal ligation status; Z90.710 Acquired absence of both cervix and uterus; Z71.6 Tobacco abuse counseling